=== PATIENT | female | born 1950 | race Caucasian/White ===

== ENCOUNTER 2018-12-25 15:57 | Emergency (ER) | payer MEDICARE, OTHER ==
[~2018-12-25] VITALS: Ht 149.9 cm; Wt 104.1 kg
[~2018-12-25 15:57] MED LIST: ALPR0.5T PO; BEN25 PO; CALC500T PO; CARI350T29 PO; DOCU-144 PO; DULO30CA45 PO; FURO40TA4 PO; HYDR-3498; HYDR25SU23 PR; METF500T24 PO; OXYB5TAB7 PO; TRAM50TA2 PO; TRAZ-111 PO
[2018-12-25 16:07] VITALS: BP 119/67; PULSE 60; RESP 18; Ht 149.9 cm; Wt 104.1 kg
--- NOTE | 2018-12-25 17:19 | ERD ---
ER Documentation Chief Complaint Chief Complaint rectal bleed after bm. hx of hemorrrhoids HPI This is 68-year-old female with history of lymphedema, chronic pain, Dm, HTN, CHF, and A. fib on Eliquis who presents to the ED complaining of 2 days of rectal bleeding after bowel movements. Patient states she has been constipated over the past few days and usually has pain when defecating. She had one bowel movement today, but her previous bowel movement was over 3 days ago. She has been using laxatives to help with her constipation. She states she noticed bright red blood in the toilet paper and when wiping yesterday, slightly less bleeding today. She states she also feels lightheaded and dizzy and extremely tired. She denies any abdominal pain, nausea, vomiting. No headache. She reports history of hemorrhoids and intermittently uses Preparation H but ran out of this medication. In addition, patient reports chronic pain to her bilateral lower extremity secondary to lymphedema. She is requesting one [place] here. She denies any trauma. Denies any shortness of breath or difficulty breathing. No chest pain. No other complaints. ROS All systems reviewed and are negative except as per history of present illness. Medications Home Meds Active Scripts Docusate Sodium* (Colace*) 100 Mg Capsule, 100 MG PO TID for constipation, #30 CAP Prov:AGUS OLIVER PA-C 12/25/18 Hydrocortisone Acetate (Anusol-Hc) 25 Mg Supp.rect, 1 SUPP SC BID PRN for HEMORROID PAIN/ITCHING, #12 SUPP.RECT Prov:AGUS OLIVER PA-C 12/25/18 Tramadol HCl (Tramadol HCl) 50 Mg Tab, 50 MG PO BID PRN for PAIN, #20 TAB Prov:BETHANY CONTI [employer] 08/09/15 Alprazolam* (Xanax*) 0.5 Mg Tab, 0.5 MG PO DAILY, #20 TAB Prov:BETHANY CONTI [employer] 08/09/15 Reported Medications Hydrocodone Bit/Acetaminophen (Anexsia 5-325 Mg Tablet) 1 Tab Tablet, PRN for PAIN 07/22/15 Furosemide* (Furosemide*) 40 Mg Tablet, 40 MG PO DAILY 07/22/15 Calcium Carbonate (Calcium 500) 1 Tab Tablet, 1 TAB PO BID, TAB 07/22/15 Oxybutynin Chloride* (Ditropan*) 5 Mg Tab, 5 MG PO TID, TAB 07/22/15 Metformin Hcl* (Metformin Hcl*) 500 Mg Tablet, 500 MG PO BID, #30 TAB 07/22/15 Carisoprodol* (Carisoprodol*) 350 Mg Tablet, 350 MG PO Q8 PRN for MUSCLE SPASMS, TAB 07/22/15 Diphenhydramine Hcl* (Benadryl*) 25 Mg Cap, 25 MG PO QHS for ITCHING, CAP 03/11/15 Trazodone Hcl* (Trazodone Hcl*) 50 Mg Tablet, 50 MG PO HS PRN for PAIN, TAB 03/11/15 Duloxetine Hcl* (Cymbalta*) 30 Mg Capsule.dr, 30 MG PO BID, CAP 08/04/14 Allergies Allergies: Coded Allergies: Penicillins (Verified Allergy, Unknown, 07/22/15) adhesive (Verified Allergy, Unknown, 03/11/15) ciprofloxacin (Verified Allergy, Unknown, 07/22/15) sulfamethoxazole (Verified Allergy, Unknown, 07/22/15) trimethoprim (Verified Allergy, Unknown, 07/22/15) Uncoded Allergies: kefelx (Allergy, Unknown, 07/26/15) hives PMhx/Soc History of Surgery: Yes (see above) Anesthesia Reaction: No Hx Neurological Disorder: No Hx Respiratory Disorders: Yes (pneumonia x2, 5 yrs ago) Hx Cardiac Disorders: No Hx Psychiatric Problems: Yes (acute depression) Hx Miscellaneous Medical Probl: Yes (DM, BLE cellulitis, hysterectomy, HTN, LYMPHEDEMA) Hx Alcohol Use: Yes Hx Substance Use: No Hx Tobacco Use: No Physical Exam Vitals Vital Signs Date Temp Pulse Resp B/P (MAP) Pulse Ox O2 O2 Flow FiO2 Time Delivery Rate 12/25/18 98.4 60 18 119/67 94 16:07 (84) Physical Exam Const: No acute distress Head: Atraumatic Eyes: Normal Conjunctiva ENT: Normal External Ears, Nose and Mouth. Neck: Full range of motion. No meningismus. Resp: Clear to auscultation bilaterally Cardio: Regular rate and rhythm, no murmurs Abd: Soft, non tender, non distended. Normal bowel sounds Rectal Exam: Normal tone, + external hemorrhoids seen, no thrombosed hemorrhoids or abscess, rectal fissures. Stool: Brown Guaiac: Negative Skin: No petechiae or rashes Ext: + Bilateral lower extremity 2+ edema, 1+ DP/PT pulses, chronic venous stasis changes, sensation grossly intact. No calf tenderness, negative yaw's Neur: Awake and alert Psych: Normal Mood and Affect Result Diagram: 12/25/18 2854 Results 24 hrs Laboratory Tests Test 12/25/18 16:57 White Blood Count 8.8 10^3/ul Red Blood Count 5.49 10^6/ul Hemoglobin 14.5 g/dl Hematocrit 46.0 % Mean Corpuscular Volume 83.8 fl Mean Corpuscular Hemoglobin 26.4 pg Mean Corpuscular Hemoglobin Concent 31.5 g/dl Red Cell Distribution Width 14.0 % Platelet Count 216 10^3/UL Mean Platelet Volume 9.9 fl Immature Granulocytes % 0.200 % Neutrophils % 72.2 % Lymphocytes % 19.5 % Monocytes % 6.4 % Eosinophils % 1.1 % Basophils % 0.6 % Nucleated Red Blood Cells % 0.0 /100WBC Immature Granulocytes # 0.020 10^3/ul Neutrophils # 6.4 10^3/ul Lymphocytes # 1.7 10^3/ul Monocytes # 0.6 10^3/ul Eosinophils # 0.1 10^3/ul Basophils # 0.1 10^3/ul Nucleated Red Blood Cells # 0.0 10^3/ul Current Medications Medications Dose Sig/Leanna Start Time Status Last (Trade) Ordered Route PRN Stop Time Admin Dose Reason Admin 1 tab ONCE ONCE 12/25/18 DC 12/25/18 Acetaminophen PO 17:30 12/25/18 17:08 / 17:31 Hydrocodone Bitart ([place] (5/325)) Procedures/MDM LABS & DIAGNOSTIC IMAGING: CBC: no e/o of systemic infection or severe anemia ED COURSE: The patient was given [place] per her request The medication was well tolerated and the patient had market improvement in symptoms. The patient remained stable throughout ED course. MEDICAL DECISION MAKIN-year-old female with history of hemorrhoids, A. fib on blood thinners who presents with constipation and BRBPR. She has e/o of external hemorrhoids on physical exam, likely the cause of her bleeding. CBC without evidence of anemia. She is hemodynamically stable. Vital signs are normal. She will be treated with stool softeners and topical steroids. Recommend she discontinue abusing lactulose. She has an appointment for endoscopy and colonoscopy next week to her primary care provider. Strict return precautions were discussed. Additionally, patient requesting [place] for chronic pain. CURES consulted and pt was given #60 tablets of [place] in November,. She was given one [place] tablet here and d/c home w/ PCP follow up for any further refills. She has no signs or symptoms suggesting DVT, cellulitis, necrotizing fasciitis, or acute exacerbation of her CHF at this time. PRESCRIPTIONS: Preparation H, Colace SPECIALIST FOLLOW UP RECOMMENDED: None Patient has been advised to follow up with primary care in 1-2 days. Departure Diagnosis: Primary Impression: Hemorrhoids Hemorrhoid type: unspecified Qualified Codes: K64.9 - Unspecified hemorrhoids Additional Impressions: Constipation Constipation type: unspecified constipation type Qualified Codes: K59.00 - Constipation, unspecified Chronic pain Chronic pain type: other chronic pain Qualified Codes: G89.29 - Other chronic pain Condition: Stable AGUS OLIVER PA-C Dec 25, 2018 17:18
[2018-12-25] MEDS ORDERED: HYDROCODONE/APAP (5/325) TAB PO ONE (17:30)
== END 2018-12-25 17:47 | disposition home or self-care (01) ==
LOC: FTE 15:57
DX: K64.9 Unspecified hemorrhoids (principal); K59.00 Constipation, unspecified; G89.29 Other chronic pain; I11.0 Hypertensive heart disease with heart failure; I50.9 Heart failure, unspecified; E11.9 Type 2 diabetes mellitus without complications; Z79.84 Long term (current) use of oral hypoglycemic drugs
CPT/HCPCS: 36415; 85025; 99284